=== PATIENT | female | born 1980 | race Caucasian/White ===

== ENCOUNTER 2016-09-13 18:02 | Emergency (ER) | payer MEDICAID ==
--- NOTE | 2016-09-13 18:58 | XRAY Preliminary Report ---
Exam: XR Chest 2 View PA/LAT IMPRESSION: No acute intrathoracic plain film abnormality. [facility] SITE ID: [id number]
--- NOTE | 2016-09-13 19:01 | XRAY Report ---
EXAM: CHEST RADIOGRAPHY EXAM DATE: 09/13/2016 06:48 PM. CLINICAL HISTORY: Dyspnea. COMPARISON: 02/02/2009. TECHNIQUE: 2 views. FINDINGS: Lungs/Pleura: No focal opacities evident. No pleural effusion. No pneumothorax. Normal volumes. Mediastinum: Heart and mediastinal contours are unremarkable. Other: Convexity at the medial base of the right chest on frontal view is stable as compared to these examinations. IMPRESSION: No acute intrathoracic plain film abnormality. [facility] Referring Provider Line: [phone] SITE ID: [id number]
--- NOTE | 2016-09-13 20:15 | ED Physician Documentation ---
PD HPI TRUNK INJURY - Stated complaint Stated Complaint: SOA/CHEST TIGHT - Chief complaint Chief Complaint: Resp - History obtained from History obtained from: Patient - History of Present Illness Location: Center chest, Upper back Type of injury: Fall (she had fallen about a week ago or so, but did not have chest pain at that time. No recent cough. Today had abrupt onset center chest pain radiating to back, worse with breathing, feeling like tearing/sharp pain.) . No: Twist Timing - onset: Today Timing - duration: Hours (1-2) Timing - details: Abrupt onset, Still present Quality: Pain, Sharp, Tearing Worsened by: Other (breathing). No: Moving, Palpating Associated symtptoms: No: Weakness, Numbness, Tingling, Syncope Contributing factors: No: Anticoagulated Similar symptoms before: Has not had sx before Recently seen: Not recently seen Review of Systems Constitutional: denies: Fever, Chills Nose: denies: Rhinorrhea / runny nose, Congestion Throat: denies: Sore throat Cardiac: denies: Palpitations, Pedal edema, Calf pain Respiratory: denies: Dyspnea, Cough, Wheezing GI: denies: Abdominal Pain, Nausea, Vomiting, Diarrhea : denies: Dysuria, Frequency Skin: denies: Rash, Lesions Musculoskeletal: denies: Extremity pain, Extremity swelling Neurologic: denies: Focal weakness, Numbness, Near syncope PD PAST MEDICAL HISTORY - Past Medical History Cardiovascular: None Respiratory: None Neuro: None Endocrine/Autoimmune: None GI: None - Present Medications Home Medications: Ambulatory Orders Medication Instructions Recorded Confirmed Hydrocodone/Acetaminophen [Hel[place] 1 each PO Q6H PRN #20 tablet 09/13/16 5-325 Tablet] Naproxen [Naprosyn] 500 mg PO BID #15 tablet 09/13/16 - Allergies Allergies/Adverse Reactions: Allergies Allergy/AdvReac Type Severity Reaction Status Date / Time No Known Drug Allergies Allergy Verified 02/15/15 20:12 - Social History Does the pt smoke?: Yes Smoking Status: Current every day smoker Does the pt drink ETOH?: No Does the pt have substance abuse?: No - Immunizations Immunizations are current?: No PD ED PE NORMAL - Vitals Vital signs reviewed: Yes - General General: Alert and oriented X 3, Well developed/nourished, Other (appears in pain; splinted breathing) - HEENT HEENT: Ears normal, Pharynx benign - Neck Neck: Supple, no meningeal sign, No adenopathy - Cardiac Cardiac: RRR, No murmur - Respiratory Respiratory: Clear bilaterally, Other (no chestwall tenderness) - Abdomen Abdomen: Normal bowel sounds, Soft, Non tender, Non distended - Back Back: No CVA TTP - Derm Derm: Normal color, Warm and dry - Extremities Extremities: Normal ROM s pain, No edema, No calf tenderness / cord - Neuro Neuro: Alert and oriented X 3, No motor deficit, Normal speech Results - Vitals Vitals: Oxygen O2 Source Room air - Labs Labs: Laboratory Tests 09/13/16 09/13/16 21:03 21:03 WBC 9.5 RBC 4.93 Hgb 14.6 Hct 42.5 MCV 86.2 MCH 29.7 MCHC 34.4 RDW 12.7 Plt Count 275 MPV 7.2 L Neut # 5.1 Lymph # 3.6 [place] # 0.5 Eos # 0.3 Baso # 0.1 Absolute Nucleated RBC 0.01 Nucleated RBCs 0.1 Sodium 138 Potassium 3.6 Chloride 104 Carbon Dioxide 26 Anion Gap 8.0 BUN 11 Creatinine 0.6 Estimated GFR (MDRD) 112 Glucose 83 Calcium 9.5 Total Bilirubin 0.6 AST 18 ALT 14 Alkaline Phosphatase 49 Total Protein 7.6 Albumin 4.7 Globulin 2.9 Albumin/Globulin Ratio 1.6 Lipase 19 L - Rads (name of study) CXR Radiology: Prelim report reviewed, EMP read contemporaneously (normal) chest CT-A Radiology: Prelim report reviewed (normal aorta and no PE or other abnormal. ) PD MEDICAL DECISION MAKING - ED course Complexity details: reviewed results, considered differential (has severe chest pain radiating to back abruptly. CXR is clear but I am concerned for vascular process or occult PTX/etc. Discussed with patient and opted for CT-A. This was normal. Presume then some pleurisy process. ), d/w patient Departure - Departure Disposition: 01 Home, Self Care Clinical Impression: Chest pain Qualifiers: Chest pain type: chest pain on breathing Qualified Code(s): R07.1 - Chest pain on breathing Condition: Stable Record reviewed to determine appropriate education?: Yes Instructions: ED Chest Pain Pleurisy Follow-Up: Faisal Morris MD [Primary Care Provider] - Prescriptions: Naproxen [Naprosyn] 500 mg PO BID #15 tablet Hydrocodone/Acetaminophen [Helena 5-325 Tablet] 1 each PO Q6H PRN #20 tablet PRN Reason: Pain Comments: Naproxen or Ibuprofen 2-3 times daily for a week, presuming some chestwall or pleural inflammation (pleurisy). Add hydrocodone as needed for pains. Recheck if not improved over the next several days. Discharge Date/Time: 09/13/16 23:24
[2016-09-13] MEDS ORDERED: ACETAMINOPHEN 325 MG TABLET PO STA (20:39)
[2016-09-13] MEDS ORDERED: KETOROLAC 60 MG/2 ML VIAL IVP STA (20:39)
[2016-09-13] MEDS ORDERED: ACETAMINOPHEN 325 MG TABLET PO ONE (20:50)
[2016-09-13] MEDS ORDERED: KETOROLAC 60 MG/2 ML VIAL ONE (20:50)
[2016-09-13] MEDS ORDERED: KETOROLAC 30 MG/ML VIAL ONE (21:06)
[2016-09-13 21:15] LABS: BASOPHILS # (AUTO) 0.1 10^3/uL (0.0-0.1); BASOPHILS % (AUTO) 1.2 %; EOSINOPHILS # (AUTO) 0.3 10^3/uL (0.0-0.7); EOSINOPHILS % (AUTO) 2.9 %; HCT - HEMATOCRIT 42.5 % (37.0-47.0); HGB - HEMOGLOBIN 14.6 g/dL (12.0-16.0); LYMPHOCYTES # (AUTO) 3.6 10^3/uL (1.5-3.5); LYMPHOCYTES % (AUTO) 37.8 %; MEAN CORPUSCULAR HEMOGLOBIN 29.7 pg (27.0-31.0); MEAN CORPUSCULAR HGB CONC 34.4 g/dL (32.0-36.0); MEAN CORPUSCULAR VOLUME 86.2 fL (81.0-99.0); MEAN PLATELET VOLUME 7.2 fL (7.9-10.8); MONOCYTES # (AUTO) 0.5 10^3/uL (0.0-1.0); MONOCYTES % (AUTO) 4.8 %; NEUTROPHILS # (AUTO) 5.1 10^3/uL (1.5-6.6); NEUTROPHILS % (AUTO) 53.3 %; NUCLEATED RED BLOOD CELLS AUTO 0.1 /100WBC; RED BLOOD COUNT 4.93 10^6/uL (4.20-5.40); RED CELL DISTRIBUTION WIDTH 12.7 % (12.0-15.0); UNCORRECTED WHITE BLOOD COUNT 9.5 x10^3/uL; WHITE BLOOD COUNT 9.5 x10^3/uL (4.8-10.8)
[2016-09-13 21:31] LABS: ALBUMIN/GLOBULIN RATIO 1.6 (1.0-2.2); BILIRUBIN,TOTAL 0.6 mg/dL (0.2-1.0); CALCIUM 9.5 mg/dL (8.5-10.3); CREATININE 0.6 mg/dL (0.4-1.0); POTASSIUM 3.6 mmol/L (3.5-5.0); TOTAL PROTEIN 7.6 g/dL (6.7-8.2)
[2016-09-13] MEDS ORDERED: IOPAMIDOL-300 100 ML VIAL IVP ONE (21:59)
--- NOTE | 2016-09-13 22:24 | CT Preliminary Report ---
Exam: CT Chest Angio (AORTA) IMPRESSION: Normal chest and abdomen CT angiogram. No aneurysm or dissection. No incidental pulmonary embolism up to the segmental level. [facility] SITE ID: [id number]
--- NOTE | 2016-09-13 22:27 | CT Report ---
EXAM: CT ANGIOGRAM CHEST AND ABDOMEN EXAM DATE: 09/13/2016 10:02 PM. CLINICAL HISTORY: Pleuritic chest pain radiating into back. COMPARISONS: None. TECHNIQUE: Routine axial helical CT angiographic imaging was performed through the chest and abdomen. IV Contrast: 100 mL Isovue-300. Reconstructions: Coronal, sagittal, and 3D MIP reconstructions of th e aorta. In accordance with CT protocol optimization, one or more of the following dose reduction techniques w ere utilized for this exam: automated exposure control, adjustment of mA and/or KV based on patient s ize, or use of iterative reconstructive technique. FINDINGS: Vascular Structures: Normal. No aneurysm, dissection, or significant atherosclerotic disease of the t horacic aorta or abdominal aorta. The visualized pulmonary, mesenteric, and solid organ vascular stru ctures are also within normal limits. Lungs/Pleura: No consolidation, nodules, or edema. No effusions or pneumothorax. Mediastinum: Normal. No cardiac enlargement or adenopathy. Solid Organs: Normal. The liver, spleen, pancreas, adrenal glands, gallbladder and kidneys are normal in size and demonstrate no masses or abnormal enhancement. Bowel: Small hiatal hernia. No abnormally dilated bowel loops. Average retained fecal material. Peritoneal Cavity: Normal. No free fluid, free air, or acute inflammatory process. Bones: No significant abnormality. Other: None. IMPRESSION: Normal chest and abdomen CT angiogram. No aneurysm or dissection. No incidental pulmonary embolism up to the segmental level. [facility] Referring Provider Line: [phone] SITE ID: [id number]
[2016-09-13] MEDS ORDERED: HYDROcod/ACET 5/325 Prepack 6 PO ONE ×2 (22:57→23:20)
[2016-09-13 23:15] VITALS: BP 119/73
== END 2016-09-13 23:24 | disposition home or self-care (01) ==
LOC: ED 18:02
DX: R07.1 Chest pain on breathing (principal); F17.200 Nicotine dependence, unspecified, uncomplicated
CPT/HCPCS: 36415; 71020; 71275; 80053; 83690; 85025; 96374; 99284; A9270; Q9967

== ENCOUNTER 2017-04-19 23:05 | Emergency (ER) | payer MEDICAID ==
--- NOTE | 2017-04-19 23:59 | CT Report ---
EXAM: CT HEAD EXAM DATE: 04/19/2017 11:36 PM. CLINICAL HISTORY: Head trauma. Loss of consciousness. COMPARISON: None. TECHNIQUE: Multiaxial CT images were obtained from the foramen magnum to the vertex. Reformats: Coron al. IV contrast: None. In accordance with CT protocol optimization, one or more of the following dose reduction techniques w ere utilized for this exam: automated exposure control, adjustment of mA and/or KV based on patient s ize, or use of iterative reconstructive technique. FINDINGS: Parenchyma: No intraparenchymal hemorrhage. No evidence of mass, midline shift, or CT findings of inf arction. Hagen-white differentiation is distinct. Extraaxial Spaces: Normal for age. No subdural or epidural collections identified. Ventricles: Normal in size and position. Sinuses and Orbits: Imaged paranasal sinuses, orbits, and mastoids show no significant abnormality. Bones: No evidence of fracture or calvarial defect. Other: None. IMPRESSION: No acute or focal intracranial abnormality. [facility] Referring Provider Line: [phone] SITE ID: [id number]
--- NOTE | 2017-04-20 00:02 | ED Physician Documentation ---
PD HPI HEAD INJURY - Stated complaint Stated Complaint: HIT HEAD - Chief complaint Chief Complaint: Trauma Hd/Nk - History obtained from History obtained from: Patient - History of Present Illness Mechanism of head injury: Blow Where head injury occurred: Home Timing - onset: Today Location of injury: Right, Back Associated symptoms: LOC, Nausea / vomiting. No: AMS, Neck pain Similar symptoms before: Has not had sx before Recently seen: Not recently seen - Additional information Additional information: Patient is a 37 year old female with no significant past medical history who is presenting to the emergency department for loss of conciousness after hitting her head on a pipe. Patient states she was leaning over and when she stood up she hit her head. Patient's daughter states that she was knocked out. Patient states that she has some mild nausea and change of vision and a mild headache. Review of Systems Constitutional: reports: Reviewed and negative Eyes: reports: Decreased vision. denies: Photophobia Ears: denies: Drainage/discharge Nose: denies: Epistaxis Throat: denies: Dental pain / toothache Respiratory: reports: Reviewed and negative GI: reports: Nausea. denies: Vomiting : reports: Reviewed and negative Skin: reports: Abrasion (s) Musculoskeletal: denies: Neck pain, Back pain, Extremity pain Neurologic: reports: Headache, Head injury, LOC Psychiatric: reports: Reviewed and negative Immunocompromised: reports: Reviewed and negative PD PAST MEDICAL HISTORY - Past Medical History Past Medical History: No Cardiovascular: None Respiratory: None Neuro: None Endocrine/Autoimmune: None GI: None - Past Surgical History Past Surgical History: No - Present Medications Home Medications: Ambulatory Orders Medication Instructions Recorded Confirmed No Known Home Medications [No 04/19/17 04/19/17 Known Home Medications] - Allergies Allergies/Adverse Reactions: Allergies Allergy/AdvReac Type Severity Reaction Status Date / Time No Known Drug Allergies Allergy Verified 04/19/17 23:14 - Social History Does the pt smoke?: Yes Smoking Status: Current every day smoker Does the pt drink ETOH?: No Does the pt have substance abuse?: No - Immunizations Immunizations are current?: Yes - POLST Patient has POLST: No PD ED PE NORMAL - Vitals Vital signs reviewed: Yes - General General: Alert and oriented X 3, No acute distress - HEENT HEENT: PERRL, Ears normal, Dentition benign - Neck Neck: Supple, no meningeal sign, No bony TTP - Cardiac Cardiac: RRR, No murmur - Respiratory Respiratory: No respiratory distress - Abdomen Abdomen: Non distended - Extremities Extremities: No deformity, No tenderness to palpate, Normal ROM s pain - Neuro Neuro: Alert and oriented X 3, cement finisher helper 2-12 intact, No motor deficit, No sensory deficit, Normal speech Eye Opening: Spontaneous Motor: Obeys Commands Verbal: Oriented GCS Score: 15 - Psych Psych: Normal mood PD ED PE EXPANDED - HEENT HEENT: Head injury (small abrasion and hematoma on posterior right scalp) Results - Vitals Vitals: Vital Signs - 24 hr 04/19/17 04/20/17 23:09 00:00 Temperature 36.7 C Heart Rate 105 H 90 Respiratory 16 16 Rate Blood Pressure 147/97 H 136/78 H O2 Saturation 98 100 Oxygen O2 Source Room air - Rads (name of study) ct head Radiology: Final report received (no acute intracranial pathology) PD MEDICAL DECISION MAKING - ED course Complexity details: reviewed old records, reviewed results, re-evaluated patient , considered differential, d/w patient, d/w family ED course: Patient was seen and examined at bedside. due to the loc, and nausea, imaging was ordered. When patient returned from imaging the results were reviewed. there was no acute fracture or intracranial bleed. Patient required no further work up and was stable for discharge with outpatient follow up. Departure - Departure Disposition: 01 Home, Self Care Clinical Impression: Concussion Condition: Good Instructions: ED Head Injury Closed Follow-Up: primary,care provider [Other] Comments: Your diagnostics today were within normal limits. there was no acute fracture or internal bleeding. You have likely suffered a concussion. You will need to refrain from any contact sports, and decrease your amount of screen time (ipads , phones, tv). You can take motrin or tylenol as needed for pain. You should follow up with your pmd for persistent symptoms. You may return to the emergency department at any time for new, worsening or uncontrollable symptoms.
[2017-04-20 01:57] VITALS: BP 136/78
== END 2017-04-20 00:08 | disposition home or self-care (01) ==
LOC: ED 23:05
DX: S06.0X1A Concussion with loss of consciousness of 30 minutes or less, initial encounter (principal); W22.8XXA Striking against or struck by other objects, initial encounter; F17.200 Nicotine dependence, unspecified, uncomplicated
CPT/HCPCS: 70450; 99283; 99284

== ENCOUNTER 2017-08-27 14:21 | Outpatient (CLI) | payer MEDICAID ==
[2017-08-27 19:06] LABS: BASOPHILS # (AUTO) 0.1 10^3/uL (0.0-0.1); BASOPHILS % (AUTO) 1.1 %; EOSINOPHILS # (AUTO) 0.2 10^3/uL (0.0-0.7); EOSINOPHILS % (AUTO) 2.8 %; HGB - HEMOGLOBIN 13.9 g/dL (12.0-16.0); LYMPHOCYTES # (AUTO) 2.2 10^3/uL (1.5-3.5); LYMPHOCYTES % (AUTO) 32.4 %; MEAN CORPUSCULAR HGB CONC 33.3 g/dL (32.0-36.0); MEAN CORPUSCULAR VOLUME 87.1 fL (81.0-99.0); MEAN PLATELET VOLUME 7.5 fL (7.9-10.8); MONOCYTES # (AUTO) 0.3 10^3/uL (0.0-1.0); MONOCYTES % (AUTO) 4.7 %; NEUTROPHILS # (AUTO) 4.1 10^3/uL (1.5-6.6); PLT - PLATELET COUNT 253 10^3/uL (130-450); RED BLOOD COUNT 4.79 10^6/uL (4.20-5.40); RED CELL DISTRIBUTION WIDTH 13.5 % (12.0-15.0); WHITE BLOOD COUNT 6.9 x10^3/uL (4.8-10.8)
[2017-08-27 19:24] LABS: ALBUMIN 4.5 g/dL (3.2-5.5); ALBUMIN/GLOBULIN RATIO 1.7 (1.0-2.2); BILIRUBIN,TOTAL 1.1 mg/dL (0.2-1.0); CALCIUM 9.3 mg/dL (8.5-10.3); CREATININE 0.8 mg/dL (0.4-1.0); TOTAL PROTEIN 7.2 g/dL (6.7-8.2)
[2017-08-27 19:38] LABS: THYROID STIMULATING HORMONE 2.18 uIU/mL (0.34-5.60)
[2017-08-27 19:50] LABS: FOLATE 7.72 ng/mL (5.90 - >24.8)
== END 2017-08-27 14:22 | disposition home or self-care (01) ==
LOC: LAB.N 14:21
PROVIDERS: ATTEND Nurse Practitioner
DX: R53.83 Other fatigue (principal); E55.9 Vitamin D deficiency, unspecified
CPT/HCPCS: 36415; 80053; 82306; 82607; 82746; 84443; 85025

== ENCOUNTER 2018-02-15 14:37 | Outpatient (CLI) | payer MEDICAID | END 2018-02-15 14:38 | disposition EMS.NT | LOC: EMS 14:37 | PROVIDERS: ATTEND Surgery | DX: S09.90XA Unspecified injury of head, initial encounter (principal); W20.8XXA Other cause of strike by thrown, projected or falling object, initial encounter; Y93.H3 Activity, building and construction; Y92.007 Garden or yard of unspecified non-institutional (private) residence as the place of occurrence of the external cause ==

== ENCOUNTER 2018-02-17 20:05 | Emergency (ER) | payer MEDICAID ==
[2018-02-17 20:22] VITALS: BP 135/90
--- NOTE | 2018-02-17 21:25 | CT Report ---
Reason: concussion persistent symptoms Procedure Date: 02/17/2018 Accession Number: [id number] / [id number] Procedure: CT - Head W/O CPT Code: FULL RESULT: EXAM: CT HEAD EXAM DATE: 02/17/2018 08:59 PM. CLINICAL HISTORY: Head trauma 3 days ago. Persistent headache. Nausea and vomiting today. COMPARISON: Head without 04/19/2017 11:36 PM. TECHNIQUE: Multiaxial CT images were obtained from the foramen magnum to the vertex. Reformats: Sagittal and coronal. IV contrast: None. In accordance with CT protocol optimization, one or more of the following dose reduction techniques were utilized for this exam: automated exposure control, adjustment of mA and/or KV based on patient size, or use of iterative reconstructive technique. FINDINGS: Parenchyma: No intraparenchymal hemorrhage. No evidence of mass, midline shift, or CT findings of infarction. Hagen-white differentiation is distinct. Extraaxial Spaces: Normal for age. No subdural or epidural collections identified. Ventricles: Normal in size and position. Sinuses and Orbits: Imaged paranasal sinuses, orbits, and mastoids show no significant abnormality. Bones: No evidence of fracture or calvarial defect. Other: None. IMPRESSION: Normal head CT. [facility]
--- NOTE | 2018-02-17 21:33 | ED Physician Documentation ---
PD HPI HEAD INJURY - Stated complaint Stated Complaint: HEAD PX/NAUSEA - Chief complaint Chief Complaint: Neuro - History obtained from History obtained from: Patient, Family - History of Present Illness Mechanism of head injury: Blow Where head injury occurred: Home Timing - onset: How many days ago (4) Location of injury: Front, Top Quality of pain: Pain Associated symptoms: Nausea / vomiting. 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 She did not have loss of consciousness but it did bring her to her feet and she really felt like she was about to . She has small laceration to her scalp she was able to control that bleeding and she has had some nausea on and off. She denies any specific dizziness she has had some trouble concentrating and her family indicates that she has not entirely her normal self. The patient did try to go to work today she works at [employer] and she found that this did not work too well. She also is complaining of some pain around the abdomen. Review of Systems Constitutional: denies: Fever Eyes: denies: Decreased vision Ears: denies: Ear pain Nose: denies: Congestion Throat: denies: Sore throat Cardiac: denies: Chest pain / pressure, Palpitations Respiratory: denies: Dyspnea, Cough GI: reports: Nausea. denies: Abdominal Pain, Vomiting : denies: Dysuria, Frequency Skin: denies: Rash Musculoskeletal: denies: Neck pain, Back pain, Extremity pain Neurologic: reports: Headache, Head injury. denies: Generalized weakness, Focal weakness, Numbness, Seizure, Confused, LOC PD PAST MEDICAL HISTORY - Past Medical History Cardiovascular: None Respiratory: None Endocrine/Autoimmune: None GI: None - Past Surgical History Past Surgical History: No - Present Medications Home Medications: Ambulatory Orders Medication Instructions Recorded Confirmed Ondansetron Odt [Zofran] 4 mg TL Q6H PRN #10 tablet 02/17/18 - Allergies Allergies/Adverse Reactions: Allergies Allergy/AdvReac Type Severity Reaction Status Date / Time No Known Drug Allergies Allergy Verified 02/17/18 20:22 - Social History Does the pt smoke?: Yes Smoking Status: Current every day smoker Does the pt drink ETOH?: No Does the pt have substance abuse?: No - Immunizations Immunizations are current?: Yes - POLST Patient has POLST: No PD ED PE NORMAL - Vitals Vital signs reviewed: Yes (hypertensive mild diastolic ) - General General: Alert and oriented X 3, No acute distress, Well developed/nourished - HEENT HEENT: PERRL, EOMI, Ears normal, Moist mucous membranes, Pharynx benign, Dentition benign, Other (There is a healing superficial laceration to the anterior scalp about 1.5cm. No sign of inflamation or infection ) - Neck Neck: Supple, no meningeal sign, No bony TTP - Cardiac Cardiac: RRR, No murmur - Respiratory Respiratory: No respiratory distress, Clear bilaterally - Abdomen Abdomen: Soft, Non tender - Back Back: No CVA TTP, No spinal TTP - Derm Derm: Normal color, Warm and dry, No rash - Extremities Extremities: No deformity, No edema - Neuro Neuro: Alert and oriented X 3, golf cart attendant 2-12 intact, No motor deficit, No sensory deficit, Normal speech Eye Opening: Spontaneous Motor: Obeys Commands Verbal: Oriented GCS Score: 15 - Psych Psych: Normal mood, Normal affect Results - Vitals Vitals: Vital Signs - 24 hr 02/17/18 20:17 Temperature 36.8 C Heart Rate 90 Respiratory 18 Rate Blood Pressure 135/90 H O2 Saturation 100 Oxygen O2 Source Room air - Rads (name of study) CT head without Radiology: Prelim report reviewed (Impression: Normal head CT.), EMP read indepedently, See rad report PD MEDICAL DECISION MAKING - ED course Complexity details: reviewed old records, reviewed results, re-evaluated patient, considered differential, d/w patient, d/w family ED course: 38-year-old female with a concussion 4 days ago has persistent postconcussive syndrome including some nausea and difficulty concentrating. She did not feel like driving today. She has had her sister drive her here to the emergency department. Her CT scan is without evidence of hemorrhage. She does have a small healing laceration to her scalp. She appears to have had a concussion and I discussed with her the postconcussive syndrome likely lasting several weeks and I have asked her to to stop work this week. I have given her a note for 1 week. She will follow-up with Joe agrawal [facility] as needed. Departure - Departure Disposition: 01 Home, Self Care Clinical Impression: Concussion Qualifiers: Encounter type: initial encounter Loss of consciousness presence/duration: without LOC Qualified Code(s): S06.0X0A - Concussion without loss of consciousness, initial encounter Condition: Stable Instructions: ED Concussion Follow-Up: Joe Rodarte [facility] [Provider Group] Prescriptions: Ondansetron Odt [Zofran] 4 mg TL Q6H PRN #10 tablet PRN Reason: Nausea / Vomiting Forms: Activity restrictions
[2018-02-17] MEDS ORDERED: ONDANSETRON ODT 4 MG Prepack 2 TL PRN (22:59)
== END 2018-02-17 23:13 | disposition home or self-care (01) ==
LOC: ED 20:05
DX: S06.0X0A Concussion without loss of consciousness, initial encounter (principal); W22.8XXA Striking against or struck by other objects, initial encounter; Y92.009 Unspecified place in unspecified non-institutional (private) residence as the place of occurrence of the external cause; F17.200 Nicotine dependence, unspecified, uncomplicated
CPT/HCPCS: 70450; 99283

== ENCOUNTER 2018-07-11 15:44 | Emergency (ER) | payer MEDICAID ==
[2018-07-11 16:15] VITALS: BP 113/78
[2018-07-11] MEDS ORDERED: NAPROXEN 250 MG TABLET PO STA (17:25)
[2018-07-11] MEDS ORDERED: ACETAMINOPHEN 500 MG TABLET PO STA (17:25)
== END 2018-07-11 19:00 | disposition left against medical advice (07) ==
LOC: ED 15:44
DX: Z53.21 Procedure and treatment not carried out due to patient leaving prior to being seen by health care provider (principal)

== ENCOUNTER 2019-04-28 10:27 | Outpatient (CLI) | payer MEDICAID ==
[2019-04-28 10:43] LABS: BASOPHILS # (AUTO) 0.1 10^3/uL (0.0-0.1); BASOPHILS % (AUTO) 0.6 %; EOSINOPHILS # (AUTO) 0.1 10^3/uL (0.0-0.7); EOSINOPHILS % (AUTO) 1.5 %; HGB - HEMOGLOBIN 14.5 g/dL (12.0-16.0); LYMPHOCYTES # (AUTO) 2.4 10^3/uL (1.5-3.5); LYMPHOCYTES % (AUTO) 30.7 %; MEAN CORPUSCULAR HEMOGLOBIN 31.1 pg (27.0-31.0); MEAN CORPUSCULAR VOLUME 91.4 fL (81.0-99.0); MEAN PLATELET VOLUME 8.8 fL (7.9-10.8); MONOCYTES # (AUTO) 0.4 10^3/uL (0.0-1.0); MONOCYTES % (AUTO) 5.6 %; NEUTROPHILS # (AUTO) 4.8 10^3/uL (1.5-6.6); NEUTROPHILS % (AUTO) 61.1 %; PLT - PLATELET COUNT 253 10^3/uL (130-450); RED BLOOD COUNT 4.66 10^6/uL (4.20-5.40); RED CELL DISTRIBUTION WIDTH 12.8 % (12.0-15.0); WHITE BLOOD COUNT 7.9 x10^3/uL (4.8-10.8)
== END 2019-04-28 10:28 | disposition home or self-care (01) ==
LOC: LAB 10:27
PROVIDERS: ATTEND Obstetrics & Gynecology
DX: N92.0 Excessive and frequent menstruation with regular cycle (principal)
CPT/HCPCS: 36415; 85025

== ENCOUNTER 2019-05-04 17:29 | Outpatient (CLI) | payer MEDICAID ==
--- NOTE | 2019-05-04 20:24 | Ultrasound Report ---
Reason: MENORRHAGIA Procedure Date: 05/04/2019 Accession Number: [id number] / [id number] Procedure: US - Pelvic w/Transvaginal CPT Code: Final Report FULL RESULT: EXAM: PELVIC ULTRASOUND EXAM DATE: 05/04/2019 06:58 PM. CLINICAL HISTORY: MENORRHAGIA. COMPARISON: None. TECHNIQUE: Realtime transabdominal pelvic scan performed to identify the uterus and adnexa and as an overview of other pelvic structures, followed by transvaginal scan to provide greater detail of the uterus and adnexa, with static image documentation. FINDINGS: Uterus: 9 x 4.2 x 5.9 cm, volume 116 cc. Anteverted position. Diffusely heterogeneous echotexture. Masses: Ill-defined anterior intramural fibroid measuring up to 2.5 cm. Endometrium: 9 mm. No focal endometrial abnormalities. Cervix: Unremarkable. Right Ovary: 3.1 x 1.3 x 2 cm, volume 4.2 cc. Normal echotexture and blood flow. 2 million calcification noted. Left Ovary: 3.2 x 1.8 x 3.7 cm, volume 11.2 cc. Normal echotexture and blood flow. Free Fluid: None. Other: None. IMPRESSION: 2.5 cm anterior intramural fibroid. [facility]
== END 2019-05-04 17:30 | disposition home or self-care (01) ==
LOC: DI 17:29
PROVIDERS: ATTEND Obstetrics & Gynecology
DX: D25.1 Intramural leiomyoma of uterus (principal)
CPT/HCPCS: 76830; 76856

== ENCOUNTER 2019-06-02 15:54 | Outpatient (CLI) | payer MEDICAID ==
--- NOTE | 2019-06-10 09:30 | Mammography Report ---
Reason: SCREENING MAMMO Procedure Date: 06/02/2019 Accession Number: [id number] / [id number] Procedure: LATISHA - Screening Mammo w/Ray CPT Code: Final Report FULL RESULT: EXAM: Screening Mammo w/Ray DATE: 06/02/2019 4:44 PM CLINICAL HISTORY: Screening encounter. Baseline screening exam. TECHNIQUE: (B) - Bilateral CC, laterally exaggerated CC, MLO views were obtained. COMPARISON: None PARENCHYMAL PATTERN: (D) - The breast(s) demonstrate(s) heterogeneously dense fibroglandular parenchyma. FINDINGS: In the right breast 4 cm from the nipple is a grouping of calcifications centrally, CC image 24 and MLO image 31 which requires additional spot magnification views for characterization and potentially ultrasound. In the left breast is a grouping of calcifications in the upper outer breast 6.6 cm from the nipple as seen on MLO image 20, also seen on the laterally exaggerated CC view and partially included on the tomographic CC image 29, questionably associated with architectural distortion. Additionally, in the left breast 3 cm from the nipple is a grouping of calcifications possibly associated with a nodule is seen on MLO image 20 and possibly CC image 28. Both of these findings require additional spot magnification views and potentially ultrasound. IMPRESSION: Incomplete examination. BI-RADS category 0. RECOMMENDATION: ([facility]) - Additional views using both Mammography and Ultrasound recommended. Both breasts. BI-RADS CATEGORY: (0) - Incomplete Examination - need additional evaluation. STANDARD QUALIFYING STATEMENTS: 1. This examination was not reviewed with the aid of Computer-Aided Detection (CAD). 2. A negative or benign imaging report should not preclude biopsy if clinically suspicious findings are present. 3. Dense breasts may obscure an underlying neoplasm. 4. This examination was reviewed with the aid of 3D breast imaging (tomosynthesis).
== END 2019-06-02 15:55 | disposition home or self-care (01) ==
LOC: DI 15:54
PROVIDERS: ATTEND Obstetrics & Gynecology
DX: Z12.31 Encounter for screening mammogram for malignant neoplasm of breast (principal); R92.1 Mammographic calcification found on diagnostic imaging of breast
CPT/HCPCS: 77063; 77067

== ENCOUNTER 2019-07-02 14:07 | Outpatient (CLI) | payer MEDICAID ==
--- NOTE | 2019-07-03 09:06 | Mammography Report ---
Reason: ABNORMAL MAMMOGRAM Procedure Date: 07/02/2019 Accession Number: [id number] / [id number] Procedure: LATISHA - Diag Special Views Dig Bilat CPT Code: Final Report FULL RESULT: EXAM: Diag Special Views Dig Bilat DATE: 07/02/2019 3:14 PM CLINICAL HISTORY: Diagnostic examination. The patient is recalled from screening for bilateral breast calcifications. TECHNIQUE: (B) - Bilateral spot magnified CC and ML and spot magnified ML images are obtained. COMPARISON: 06/02/2019. PARENCHYMAL PATTERN: (D) - The breast(s) demonstrate(s) heterogeneously dense fibroglandular parenchyma. FINDINGS: In the right breast medially at the 3:00 position 4.4 cm from the nipple the cluster of calcifications appears pleomorphic, suspicious. In the left breast laterally along the 1:00 axis .5 cm from the nipple a cluster of calcifications demonstrates some pleomorphism and is suspicious. Along the same 1:00 axis III cm from the nipple in the left breast scatter calcifications are not convincingly grouped, typically benign. There are no suspicious masses or areas of distortion. IMPRESSION: Suspicious findings. BI-RADS category 4. RECOMMENDATION: (BIOPSY) - stereotactic biopsy of calcifications right and left as described. BI-RADS CATEGORY: (4) - Suspicious. STANDARD QUALIFYING STATEMENTS: 1. This examination was not reviewed with the aid of Computer-Aided Detection (CAD). 2. A negative or benign imaging report should not preclude biopsy if clinically suspicious findings are present. 3. Dense breasts may obscure an underlying neoplasm. 4. This examination was reviewed with the aid of 3D breast imaging (tomosynthesis).
== END 2019-07-02 14:08 | disposition home or self-care (01) ==
LOC: DI 14:07
PROVIDERS: ATTEND Obstetrics & Gynecology
DX: R92.1 Mammographic calcification found on diagnostic imaging of breast (principal)
CPT/HCPCS: 77066

== ENCOUNTER 2020-02-08 21:39 | Outpatient (CLI) | payer MEDICAID | END 2020-02-08 21:40 | disposition EMS.NT | LOC: EMS 21:39 | PROVIDERS: ATTEND Surgery | DX: R11.2 Nausea with vomiting, unspecified (principal); R53.1 Weakness ==

== ENCOUNTER 2020-02-27 02:02 | Emergency (ER) | payer MEDICAID ==
[2020-02-27 02:37] LABS: BASOPHILS # (AUTO) 0.1 10^3/uL (0.0-0.1); BASOPHILS % (AUTO) 0.8 %; EOSINOPHILS # (AUTO) 0.3 10^3/uL (0.0-0.7); EOSINOPHILS % (AUTO) 4.3 %; HGB - HEMOGLOBIN 15.3 g/dL (12.0-16.0); LYMPHOCYTES # (AUTO) 3.4 10^3/uL (1.5-3.5); LYMPHOCYTES % (AUTO) 43.4 %; MEAN CORPUSCULAR HEMOGLOBIN 30.4 pg (27.0-31.0); MEAN CORPUSCULAR HGB CONC 34.2 g/dL (32.0-36.0); MEAN CORPUSCULAR VOLUME 88.7 fL (81.0-99.0); MEAN PLATELET VOLUME 8.7 fL (7.9-10.8); MONOCYTES # (AUTO) 0.4 10^3/uL (0.0-1.0); MONOCYTES % (AUTO) 5.6 %; NEUTROPHILS # (AUTO) 3.6 10^3/uL (1.5-6.6); NEUTROPHILS % (AUTO) 45.6 %; PLT - PLATELET COUNT 274 10^3/uL (130-450); RED BLOOD COUNT 5.04 10^6/uL (4.20-5.40); RED CELL DISTRIBUTION WIDTH 12.3 % (12.0-15.0); WHITE BLOOD COUNT 7.8 x10^3/uL (4.8-10.8)
[2020-02-27 02:38] LABS: BILIRUBIN,URINE NEGATIVE (NEGATIVE); GLUCOSE, URINE (UA) NEGATIVE (NEGATIVE); KETONES,URINE (UA) NEGATIVE (NEGATIVE); LEUKOCYTE ESTERASE, URINE NEGATIVE (NEGATIVE); NITRITE,URINE POSITIVE (NEGATIVE); OCCULT BLOOD,URINE SMALL (NEGATIVE); PH,URINE 6.5 PH (5.0-7.5); PROTEIN,URINE NEGATIVE (NEGATIVE); UROBILINOGEN,URINE 0.2 (NORMAL) E.U./dL (NORMAL)
[2020-02-27 02:42] LABS: CLARITY,URINE SL. CLOUDY (CLEAR)
[2020-02-27 02:44] LABS: RBC,URINE 0-5 /HPF (0-5)
[2020-02-27 02:45] LABS: BACTERIA,URINE Many /HPF (None Seen); SQUAMOUS EPITHELIAL CELL,UR RARE Squamous (<= Few)
[2020-02-27 02:49] LABS: ALBUMIN 4.5 g/dL (3.2-5.5); ALBUMIN/GLOBULIN RATIO 1.7 (1.0-2.2); BILIRUBIN,TOTAL 0.6 mg/dL (0.2-1.0); CALCIUM 9.2 mg/dL (8.5-10.3); CREATININE 0.6 mg/dL (0.4-1.0); TOTAL PROTEIN 7.2 g/dL (6.7-8.2)
[2020-02-27 03:25] LABS: HCG UR QUAL NEGATIVE
[2020-02-27] MEDS ORDERED: ONDANSETRON 4 MG/2 ML VIAL IVP STA (04:26)
[2020-02-27] MEDS ORDERED: FAMOTIDINE 20 MG/2 ML SYRINGE IVP STA (04:26)
[2020-02-27 05:17] VITALS: BP 126/74
--- NOTE | 2020-02-27 09:06 | ED Physician Documentation ---
PD HPI ABD PAIN - Stated complaint Stated Complaint: NAUSEA/DIARRHEA - Chief complaint Chief Complaint: Abd Pain - History obtained from History obtained from: Patient - Additional information Additional information: 40-year-old woman undomiciled with past medical history of uterine fibroids, tubal ligation, presents with epigastric abdominal pain burning in quality radiating upward associated with nausea, starting gradually since 7 PM last night. Mild/moderate severity. Patient states that she was very cold and is living in a tent and came to the ED because of the cold is making her pain wors e. Denies fever chills cough shortness of breath chest pain vomiting diarrhea or urinary symptoms. Review of Systems Ten Systems: 10 systems reviewed and negative Constitutional: denies: Fever, Chills GI: reports: Abdominal Pain, Nausea. denies: Vomiting : denies: Dysuria PD PAST MEDICAL HISTORY - Past Medical History Past Medical History: No Cardiovascular: None Respiratory: None Neuro: None Endocrine/Autoimmune: None GI: None ASSOCIATE PROFESSOR OF MANAGEMENT: None : None HEENT: None Psych: None Musculoskeletal: None Derm: None - Past Surgical History Past Surgical History: No /ASSOCIATE PROFESSOR OF MANAGEMENT: Tubal ligation - Allergies Allergies/Adverse Reactions: Allergies Allergy/AdvReac Type Severity Reaction Status Date / Time No Known Drug Allergies Allergy Verified 02/27/20 02:13 - Social History Does the pt smoke?: Yes Smoking Status: Current every day smoker Does the pt drink ETOH?: No Does the pt have substance abuse?: No - Immunizations Immunizations are current?: Yes - POLST Patient has POLST: No PD ED PE NORMAL - Vitals Vital signs reviewed: Yes - General General: Alert and oriented X 3 - HEENT HEENT: Atraumatic - Neck Neck: Supple, no meningeal sign - Cardiac Cardiac: RRR - Respiratory Respiratory: No respiratory distress - Abdomen Abdomen: Non tender, Non distended - Female Female : Pt declined - Rectal Rectal: Deferred - Back Back: No CVA TTP - Derm Derm: Normal color - Extremities Extremities: No deformity, No edema - Neuro Neuro: Alert and oriented X 3 - Psych Psych: Normal mood, Normal affect Results - Vitals Vitals: Vital Signs - 24 hr 02/27/20 02/27/20 02/27/20 02:05 04:36 05:17 Temperature 36.6 C Heart Rate 95 71 88 Respiratory 18 16 16 Rate Blood Pressure 132/92 H 128/84 H 126/74 O2 Saturation 99 97 98 Oxygen O2 Source Room air - Labs Labs: Laboratory Tests 02/27/20 02/27/20 02/27/20 02:30 02:30 02:30 WBC 7.8 RBC 5.04 Hgb 15.3 Hct 44.7 MCV 88.7 MCH 30.4 MCHC 34.2 RDW 12.3 Plt Count 274 MPV 8.7 Neut # (Auto) 3.6 Lymph # (Auto) 3.4 [place] # (Auto) 0.4 Eos # (Auto) 0.3 Baso # (Auto) 0.1 Absolute Nucleated RBC 0.00 Nucleated RBC % 0.0 Sodium 139 Potassium 3.5 Chloride 103 Carbon Dioxide 26 Anion Gap 10.0 BUN 17 Creatinine 0.6 Estimated GFR (MDRD) 110 Glucose 98 Calcium 9.2 Total Bilirubin 0.6 AST 16 ALT 15 Alkaline Phosphatase 52 Total Protein 7.2 Albumin 4.5 Globulin 2.7 Albumin/Globulin Ratio 1.7 Lipase 27 Urine Color YELLOW Urine Clarity SL. CLOUDY Urine pH 6.5 Ur Specific [place] 1.025 Urine Protein NEGATIVE Urine Glucose (UA) NEGATIVE Urine Ketones NEGATIVE Urine Occult Blood SMALL H Urine Nitrite POSITIVE H Urine Bilirubin NEGATIVE Urine Urobilinogen 0.2 (NORMAL) Ur Leukocyte Esterase NEGATIVE Urine RBC 0-5 Urine WBC 0-3 Ur Squamous Epith Cells RARE Squamous Urine Bacteria Many H Ur Microscopic Review INDICATED Urine Culture Comments INDICATED Urine HCG, Qual 02/27/20 02:30 WBC RBC Hgb Hct MCV MCH MCHC RDW Plt Count MPV Neut # (Auto) Lymph # (Auto) [place] # (Auto) Eos # (Auto) Baso # (Auto) Absolute Nucleated RBC Nucleated RBC % Sodium Potassium Chloride Carbon Dioxide Anion Gap BUN Creatinine Estimated GFR (MDRD) Glucose Calcium Total Bilirubin AST ALT Alkaline Phosphatase Total Protein Albumin Globulin Albumin/Globulin Ratio Lipase Urine Color Urine Clarity Urine pH Ur Specific [place] 1.025 Urine Protein Urine Glucose (UA) Urine Ketones Urine Occult Blood Urine Nitrite Urine Bilirubin Urine Urobilinogen Ur Leukocyte Esterase Urine RBC Urine WBC Ur Squamous Epith Cells Urine Bacteria Ur Microscopic Review Urine Culture Comments Urine HCG, Qual NEGATIVE PD MEDICAL DECISION MAKING - ED course ED course: 40-year-old woman presents with epigastric abdominal pain, resolving with Pepcid and Zofran. Patient states the predominant reason she came into the emergency room was because she is sleeping outside in a tent and it is 30 degrees this evening. does not want to go to a homeless long term due to covid. Discussed need for outpatient follow-up with primary doctor. Strict return precautions given. Departure - Departure Disposition: 01 Home, Self Care Clinical Impression: Abdominal pain, Gastroesophageal reflux disease Condition: Good Instructions: Abdominal Pain Comments: You have been seen in the emergency department for your abdominal pain. It does not appear that there is any dangerous cause going on right now. Please follow- up with your primary doctor for further evaluation. Return to the ED for any worsening of symptoms. Discharge Date/Time: 02/27/20 05:16
== END 2020-02-27 05:16 | disposition home or self-care (01) ==
LOC: ED 02:02
DX: R10.13 Epigastric pain (principal); K21.9 Gastro-esophageal reflux disease without esophagitis; Z59.0 Homelessness; F17.200 Nicotine dependence, unspecified, uncomplicated
CPT/HCPCS: 36415; 80053; 81001; 81003; 81025; 83690; 85025; 87086; 87181; 96374; 99284

== ENCOUNTER 2020-06-20 13:11 | Outpatient (CLI) | payer BC ==
--- NOTE | 2020-06-21 11:08 | Mammography Report ---
BILATERAL DIGITAL SCREENING MAMMOGRAM 3D/2D: 06/20/2020 CLINICAL: Routine screening. Comparison is made to exams dated: 07/02/2019 mammogram and 06/02/2019 mammogram - [facility]. The tissue of both breasts is heterogeneously dense. This may lower the sensitivity of ma mmography. There is a biopsy clip in both breasts. No significant masses, calcifications, or other findings are seen in either breast. There has been no significant interval change. IMPRESSION: NEGATIVE There is no mammographic evidence of malignancy. A 1 year screening mammogram is recommended. This exam was interpreted at Station ID: [id number]. NOTE: For mammograms, a report in lay terms will be sent to the patient. Approximately 15% of breast malignancies will not be visualized mammographically. In the management of a palpable breast mass, a negative mammogram must not discourage biopsy of a clinically suspicious lesion. Electronically Signed By: Miah Sen M.D. slc/penrad:06/20/2020 17:58:52 ACR BI-RADS Category 1: Negative 3341F PARENCHYMAL PATTERN: (D) - The breast(s) demonstrate(s) heterogeneously dense fibroglandular parenchy ma. BI-RADS CATEGORY: (1) - 1 RECOMMENDATION: (ANNUAL) - Recommend routine annual screening mammography. [id number] 1 year screening LATERALITY: (B)
== END 2020-06-20 13:12 | disposition home or self-care (01) ==
LOC: DI 13:11
DX: Z12.31 Encounter for screening mammogram for malignant neoplasm of breast (principal)

== ENCOUNTER 2021-05-06 00:52 | Emergency (ER) | payer BC, MEDICAID ==
[2021-05-06 01:12] VITALS: BP 150/108
--- NOTE | 2021-05-06 01:30 | ED Physician Documentation ---
History of Present Illness - Stated complaint Stated Complaint: SOA - Chief complaint Chief Complaint: Heent - History obtained from History obtained from: Patient - Additonal information Additional information: 41yF previously healthy p/w progressive nasal/sinus congestion X 5 days. "I can't breathe at all through my nose. It's completely stopped up". Patient is concerned that she will not be able to breathe but denies SOA at present. denies facial pain, fever, sore throat, nausea, ear pain. Using nasal sprays and hot showers/steam at home without relief. Review of Systems Constitutional: denies: Fever, Chills Nose: reports: Congestion. denies: Rhinorrhea / runny nose Throat: denies: Sore throat Cardiac: denies: Chest pain / pressure Respiratory: denies: Dyspnea, Cough PD PAST MEDICAL HISTORY - Past Medical History Cardiovascular: None Respiratory: None Neuro: None Endocrine/Autoimmune: None GI: None ACTIVITIES CONCIERGE: None : None HEENT: None Psych: None Musculoskeletal: None Derm: None - Past Surgical History Past Surgical History: No /ACTIVITIES CONCIERGE: Tubal ligation - Allergies Allergies/Adverse Reactions: Allergies Allergy/AdvReac Type Severity Reaction Status Date / Time No Known Drug Allergies Allergy Verified 02/27/20 02:13 - Social History Does the pt smoke?: Yes Smoking Status: Current every day smoker Does the pt drink ETOH?: No Does the pt have substance abuse?: No - Immunizations Immunizations are current?: Yes - POLST Patient has POLST: No PD ED PE NORMAL - Vitals Vital signs reviewed: Yes - General General: Alert and oriented X 3, No acute distress, Well developed/nourished - HEENT HEENT: Atraumatic, PERRL, EOMI, Moist mucous membranes, Pharynx benign, Other (mild nasal congestion) - Neck Neck: Supple, no meningeal sign - Cardiac Cardiac: RRR - Respiratory Respiratory: No respiratory distress, Clear bilaterally Results - Vitals Vitals: Vital Signs - 24 hr 05/06/21 01:04 Temperature 36.5 C Heart Rate 78 Respiratory 16 Rate Blood Pressure 150/108 H O2 Saturation 99 Oxygen O2 Source Room air PD MEDICAL DECISION MAKING - ED course ED course: 41yF p/w likely viral sinusitis. normal vitals and exam with exception of mild nasal erythema. symptom care discussed and I advised patient not to use afrin more often than twice daily due to potential to worsen symptoms if used in excess. return precautions given. plan to f/u with tobi williamson in clinic since she does not have a PCP. Departure - Departure Disposition: 01 Home, Self Care Clinical Impression: Nasal sinus congestion Condition: Stable Instructions: Sinusitis Acute Comments: You were seen in the emergency department for acute sinusitis (infection and congestion of the nasal passage and sinuses, often caused by a cold virus). If you have symptoms for more than a week then a doctor might consider treatment with antibiotics for possible bacterial infection. If it persists longer than that and becomes a chronic problem, you may be referred to an ear nose and throat doctor. Please plan to follow up with Cayden williamson in clinic at [address] [facility] in [place]. Return to the ED if you have new or worsening symptoms or other concerns.
== END 2021-05-06 01:45 | disposition home or self-care (01) ==
LOC: ED 00:52
DX: J01.90 Acute sinusitis, unspecified (principal); F17.200 Nicotine dependence, unspecified, uncomplicated
CPT/HCPCS: 99281; 99282

== ENCOUNTER 2022-05-07 17:35 | Outpatient (CLI) | payer MEDICAID ==
[2022-05-07 18:25] LABS: URIC ACID 3.2 mg/dL (2.6-7.2)
--- NOTE | 2022-05-08 15:36 | XRAY Report ---
PROCEDURE: Knee 3 View RT INDICATIONS: PAIN IN RIGHT KNEE TECHNIQUE: 3 views of the right knee(s) were acquired. COMPARISON: None. FINDINGS: Bones: No fractures or dislocations. No suspicious bony lesions. Soft tissues: Moderate suprapatellar joint effusion. No suspicious soft tissue calcifications. IMPRESSION: Moderate suprapatellar knee joint effusion. Otherwise normal study. Reviewed by: Alex Baldwin MD on 05/08/2022 3:35 PM PST Approved by: Alex Baldwin MD on 05/08/2022 3:35 PM PST Station ID: [id number]
== END 2022-05-07 17:36 | disposition home or self-care (01) ==
LOC: DI 17:35
PROVIDERS: ATTEND Physician Assistant
DX: M25.561 Pain in right knee (principal); M25.461 Effusion, right knee; R79.82 Elevated C-reactive protein (CRP)
CPT/HCPCS: 36415; 84550; 85651; 86140

== ENCOUNTER 2022-11-28 15:06 | Emergency (ER) | payer MEDICAID ==
[2022-11-28 15:12] VITALS: BP 146/104; O2SAT 99
[2022-11-28] MEDS ORDERED: oxyCODONE 5 MG TABLET PO STA (15:51)
--- NOTE | 2022-11-28 16:05 | ED Physician Documentation ---
History of Present Illness - Stated complaint Stated Complaint: HEAD PX - Chief complaint Chief Complaint: Neuro - History obtained from History obtained from: Patient, Family - History of Present Illness Pain level max: 0 Pain level now: 0 - Additonal information Additional information: Patient is a 42-year-old female who presents to the emergency department stating that she has had worsening neck and head pain for the past 2 days. She states that the pain has been ongoing for about the last 10 months. She states that she sees a switchboard wire worker helper for ankylosing spondylitis. She states that she has talked to her doctor and her switchboard wire worker helper about her neck and head pain but "nobody has done anything". She states that the pain radiates from her neck up into the back of her head and down to her left shoulder. Worse with movement, better with rest. Has not taken anything for pain other than Tylenol. No nausea or vomiting. No fevers. No chills. No trauma. No vision changes. Review of Systems Constitutional: denies: Fever, Chills Respiratory: denies: Cough GI: denies: Vomiting, Diarrhea Skin: denies: Rash Musculoskeletal: denies: Back pain Neurologic: denies: Focal weakness, Numbness, Headache PD PAST MEDICAL HISTORY - Past Medical History Past Medical History: Yes Cardiovascular: None Respiratory: None Neuro: None Endocrine/Autoimmune: None GI: None SUPERVISOR MODERN LANGUAGES: None : None HEENT: None Psych: None Musculoskeletal: None Derm: None - Past Surgical History Past Surgical History: No /SUPERVISOR MODERN LANGUAGES: Tubal ligation - Present Medications Home Medications: Ambulatory Orders Medication Instructions Recorded Confirmed HYDROcod/ACETAM 5/325 [[place] 5/325] 1 - 2 ea PO Q6H PRN #10 tablet 11/28/22 methocarbamoL [Robaxin] 500 mg PO Q6H PRN #20 tablet 11/28/22 predniSONE [Deltasone] 10 mg PO [id number] #42 tab 11/28/22 - Allergies Allergies/Adverse Reactions: Allergies Allergy/AdvReac Type Severity Reaction Status Date / Time No Known Drug Allergies Allergy Verified 02/27/20 02:13 - Social History Does the pt smoke?: Yes Smoking Status: Current every day smoker Does the pt drink ETOH?: No Does the pt have substance abuse?: No - Immunizations Immunizations are current?: Yes - POLST Patient has POLST: No PD ED PE NORMAL - Vitals Vital signs reviewed: Yes - General General: Alert and oriented X 3, No acute distress - HEENT HEENT: Atraumatic, PERRL, EOMI, Moist mucous membranes, Pharynx benign - Neck Neck: Supple, no meningeal sign, No bony TTP - Cardiac Cardiac: RRR, Strong equal pulses - Respiratory Respiratory: No respiratory distress, Clear bilaterally - Abdomen Abdomen: Soft, Non tender, Non distended - Back Back: No spinal TTP - Derm Derm: Warm and dry - Extremities Extremities: No edema, No calf tenderness / cord - Neuro Neuro: Alert and oriented X 3, e business manager 2-12 intact, No motor deficit, No sensory deficit, Normal speech Eye Opening: Spontaneous Motor: Obeys Commands Verbal: Oriented GCS Score: 15 - Psych Psych: Normal mood, Normal affect Results - Vitals Vitals: Vital Signs - 24 hr 11/28/22 15:08 Temperature 36.6 C Heart Rate 93 Respiratory 20 Rate Blood Pressure 146/104 H O2 Saturation 99 Oxygen O2 Source Room air - Rads (name of study) head CT Relevant Findings:: Final report received, See rad report cervical spine CT Relevant Findings:: Final report received, See rad report PD Medical Decision Making - ED course Complexity details: reviewed results, re-evaluated patient, considered differential, d/w patient ED course: No acute findings on head CT, cervical spine CT. Headache improved with oxycodone. Recommend that she follow-up closely with her doctor for further care. Normal neurological exam. Normal gait. Will trial her on a short course of steroids to see if this is cervical radiculopathy causing her left shoulder pain, neck pain and headache. No Kristopher syndrome. No evidence of vertebral artery dissection. Ongoing symptoms for 10 months. Patient counseled regarding signs and symptoms for which I believe and urgent re-evaluation would be necessary. Patient with good understanding of and agreement to plan and is comfortable going home at this time This document was made in part using voice recognition software. While efforts are made to proofread this document, sound alike and grammatical errors may occur. Departure - Departure Disposition: 01 Home, Self Care Clinical Impression: Cervicalgia Condition: Good Instructions: ED Neck Pain No Trauma Follow-Up: your,doctor in 1 week [Other] Prescriptions: predniSONE [Deltasone] 10 mg PO [id number] #42 tab HYDROcod/ACETAM 5/325 [[place] 5/325] 1 - 2 ea PO Q6H PRN #10 tablet PRN Reason: Pain methocarbamoL [Robaxin] 500 mg PO Q6H PRN #20 tablet PRN Reason: back pain Comments: Please follow-up with your doctor for further care. Your head CT and cervical spine CT did not show any acute abnormalities. If your symptoms continue, your doctor may want to perform an MRI of your cervical spine. Your prescriptions were sent to [facility] in [place]. I am prescribing a short course of narcotic pain medication for you. These are potentially dangerous and addictive medications that should be used carefully. These medications may constipate you. Take an glkn-jhb-vaygobd stool softener (docusate) twice daily with plenty of water while taking these medications. If you go 24 hours without a bowel movement, take hgmz-[id number] miralax, per package instructions. Do not drink or drive while taking these medications. If you received narcotic or sedating medications while in the emergency department, do not drive for 24 hours. Store this medication in a safe, secure place and out of reach of children. It is a violation of federal law to give or sell this medication to another person or to use in a manner other than prescribed. The ED will not refill narcotic prescriptions, including prescriptions lost or stolen. To dispose of unwanted medications: 1. [facility] [address] [facility] in [place] has a medication drop box. They accept prescription medications (in pill form) Saturday through Saturday 9:00 a.m. to 5:00 p.m. 2. [facility] [employer] accepts prescription medications (in pill form only) for disposal year round. Call for more information. 3. Contact the [facility] for the next [facility] sponsored prescription drug collection event. , [phone], or [phone]; Forms: PCP List Discharge Date/Time: 11/28/22 17:26
--- NOTE | 2022-11-28 16:58 | CT Report ---
PROCEDURE: HEAD WO INDICATIONS: head/neck pain x 2 days, h/o ankylosing spondyliti TECHNIQUE: Noncontrast 4.5 mm thick angled axial sections acquired from the foramen magnum to the vertex. For r adiation dose reduction, the following was used: automated exposure control, adjustment of mA and/or kV according to patient size. COMPARISON: 02/17/2018. Correlation is made with the accompanying cervical spine CT. FINDINGS: Image quality: Excellent. CSF spaces: Basal cisterns are patent. No extra-axial fluid collections. Ventricles are normal in size and shape. Brain: No midline shift. No intracranial masses or hemorrhage. Hagen-white matter interface is norm al. Dense calcification can be seen along the anterior falx, which isn't regarded to be frankly path ologic. This is unchanged compared to the prior examination. Skull and face: Calvarium and visualized facial bones are intact, without suspicious lesions. Sinuses: Visualized sinuses and mastoids are clear. IMPRESSION: Unremarkable intracranial study, similar to the prior. Additional findings: Dense calcification of the anterior falx, stable. Reviewed by: Bernardo Rizvi MD on 11/28/2022 3:56 PM AKGA Approved by: Bernardo Rizvi MD on 11/28/2022 3:56 PM AKDT Station ID: [id number]
--- NOTE | 2022-11-28 16:59 | CT Report ---
PROCEDURE: CERVICAL SPINE WO INDICATIONS: head/neck pain x 2 days, h/o ankylosing spondylitis TECHNIQUE: Noncontrast 3 mm thick sections acquired from the skull base to the T4 level. Sagittal and coronal r eformats were then constructed. For radiation dose reduction, the following was used: automated exp osure control, adjustment of mA and/or kV according to patient size. COMPARISON: Correlation is made with the accompanying head CT. FINDINGS: Image quality: Excellent. Bones: No fractures or dislocations. Visualized superior ribs are intact. Soft tissues: Prevertebral soft tissues are normal in thickness. No paravertebral hematomas. No ap ical pneumothoraces. IMPRESSION: Unremarkable cervical spine CT. No adryan findings of ankylosing spondylitis can be seen within the cervical spine. Reviewed by: Bernardo Rizvi MD on 11/28/2022 3:57 PM SAVANA Approved by: Bernardo Rizvi MD on 11/28/2022 3:57 PM SAVANA Station ID: [id number]
== END 2022-11-28 17:26 | disposition home or self-care (01) ==
LOC: ED 15:06
DX: M54.2 Cervicalgia (principal); F17.200 Nicotine dependence, unspecified, uncomplicated
CPT/HCPCS: 70450; 72125; 99283; 99284; A9270